=== PATIENT | female | born 1980 | race Caucasian/White ===

== ENCOUNTER 2020-01-18 12:01 | Emergency (ER) | payer OTHER, SELFPAY ==
[2020-01-18 12:05] VITALS: BP 148/117; PULSE 100; RESP 18; TEMP 36.6; O2SAT 98
--- NOTE | 2020-01-18 12:28 | ED.GENADUL_ITS ---
Discharge Plan Disposition Patient Disposition: HOME Condition: Improving Discharge Details Chief Complaint: Epistaxis Clinical Impression: Epistaxis Primary Care Provider: Neville Barone ED Provider: Allison Camarillo Home Meds and New Rx's Prescriptions: New oxymetazoline 0.05 % mist 2 spray JEWEL Q12H PRN (Reason: nasal congestion) 3 Days Qty: 15 RF: 0 Continued cholecalciferol (vitamin D3) 2,000 unit capsule 2,000 unit PO DAILY RF: 0 flaxseed oil 1,000 mg capsule 1,000 mg PO DAILY RF: 0 fexofenadine [Milli] 180 MG tablet 180 mg PO DAILY RF: 0 iron 55 MG tablet extended release 55 mg PO RF: 0 ascorbic acid (vitamin C) [Vitamin C] 500 MG tablet,chewable 500 mg PO DAILY RF: 0 cinnamon bark 500 MG capsule 500 mg PO DAILY RF: 0 zinc gluconate 30 MG tablet 30 mg PO 2-3 x wkly RF: 0 magnesium oxide 250 MG tablet 250 mg PO RF: 0 turmeric root extract 1 EACH capsule 1 ea PO RF: 0 albuterol sulfate [Ventolin HFA] 90 mcg/actuation HFA aerosol inhaler 2 puff IH Q4H PRN (Reason: shortness of breath or wheezing) Qty: 18 RF: 11 albuterol sulfate 2.5 mg/0.5 mL solution for nebulization 5 mg IH Q6H PRN (Reason: shortness of breath or wheezing) Qty: 30 RF: 0 ipratropium-albuterol 0.5 mg-3 mg(2.5 mg base)/3 mL solution for nebulization 3 ml IH QID PRN (Reason: wheezing) Qty: 90 RF: 0 Discharge Instructions Instructions: Nosebleed (ED) Additional Instructions: Use spray as directed. Apply pressure for 15 minutes if recurrence of bleeding if bleeding does not stop after 15 minutes please return to the ED. Try not to pick your nose or blow your nose if possible. Keep mucous membranes moist with lubricant or Vaseline. Follow up with primary care provider in 3-5 days. Return to ED sooner if any worsening or concerns. Increase oral fluids. Referrals: Neville Barone, [Primary Care Provider] - Medical Decision Making 39-year-old obese female presents with epistaxis to the left nare. Patient states that for approximately 1 hour she has had a nosebleed. She states that she is had recent bloody noses over the last couple days x3. She states that usually the bleeding will stop within 15 minutes. She denies being on blood thinners, denies headache. She is slightly hypertensive upon arrival at 160/98. After holding pressure for approximately 30 minutes upon initial presentation bleeding has slowed. Nasal clamp placed. Orders for transischemic acid topically ordered. 1240: Cottonball soaked with TXA 500 mg placed to the left nare and nasal clamp applied. Will reevaluate in 10 minutes for any continued bleeding. 1305: Cotton packing removed, no active bleeding noted, will observe for 10 minutes with plan to discharge. BP down to 148/85 1319: No further bleeding at this time, plan is to discharge home, discussed home care and return instructions. HPI General Mode of arrival: ambulatory . Date/Time Provider Initiated Documentation: 01/18/20 12:18 . Limitations to Documentation: no limitations . Information obtained by: patient . HPI Narrative: 39-year-old female presents with epistaxis to the left nare. Patient states that for approximately 1 hour she has had a nosebleed. She states that she is had recent bloody noses over the last couple days x3. She states that usually the bleeding will stop within 15 minutes. She denies being on blood thinners, denies headache. She is slightly hypertensive upon arrival at 160/98. After holding pressure for approximately 30 minutes upon initial presentation bleeding has slowed. Nasal clamp placed. Orders for transischemic acid topically ordered. Related Data Home Medications Medication Instructions Recorded Confirmed ascorbic acid (vitamin C) [Vitamin 500 mg PO DAILY tab.chew 03/10/13 01/18/20 C] cinnamon bark 500 mg PO DAILY 03/10/13 01/18/20 fexofenadine [Milli] 180 mg PO DAILY tab-cap 03/10/13 01/18/20 iron 55 mg PO 03/10/13 05/02/19 zinc gluconate 30 mg PO 2-3 x wkly 07/18/16 01/18/20 magnesium oxide 250 mg PO 05/06/18 05/02/19 turmeric root extract 1 ea PO 05/06/18 05/02/19 cholecalciferol (vitamin D3) 50 2,000 unit PO DAILY 12/08/18 01/18/20 mcg (2,000 unit) capsule flaxseed oil 1,000 mg capsule 1,000 mg PO DAILY 05/02/19 01/18/20 albuterol sulfate 90 mcg/actuation 2 puff IH Q4H PRN #18 gm 01/16/20 01/18/20 aerosol inhaler albuterol sulfate 2.5 mg/0.5 mL 5 mg IH Q6H PRN #30 each 01/17/20 01/18/20 solution for nebulization ipratropium 0.5 mg-albuterol 3 mg 3 ml IH QID PRN #90 ml 01/18/20 01/18/20 (2.5 mg base)/3 mL nebulization soln oxymetazoline 2 spray JEWEL Q12H PRN 3 Days #15 ml 01/18/20 Previous Rx's Medication Instructions Recorded albuterol sulfate 90 mcg/actuation 2 puff IH Q4H PRN #18 gm 01/16/20 aerosol inhaler albuterol sulfate 2.5 mg/0.5 mL 5 mg IH Q6H PRN #30 each 01/17/20 solution for nebulization ipratropium 0.5 mg-albuterol 3 mg 3 ml IH QID PRN #90 ml 01/18/20 (2.5 mg base)/3 mL nebulization soln oxymetazoline 2 spray JEWEL Q12H PRN 3 Days #15 ml 01/18/20 Allergies Allergy/AdvReac Type Severity Reaction Status Date / Time prednisone Allergy Mild Verified 01/18/20 12:17 General Stated Complaint: Epistaxis OH: 4 Review of Systems Narrative: Constitutional: Negative for weight loss, alert and oriented, well groomed, obese body habitus, appears comfortable. HEENT: Denies trauma, headaches, blurry vision, sore throat, trouble swallowing. Positive left nare epistaxis. Chest: Denies chest pain, palpitations, irregular rhythm, hypertension. Respiratory: Denies Shortness of breath, cough, hemoptysis. GI: Denies abdominal pain, nausea, vomiting, diarrhea, constipation. : Denies dysuria, hematuria, flank pain, rectal bleeding. Neuro: Denies dizziness, blurry vision, weakness, syncope, headache or facial numbness. Hematologic: Denies easy bruising, intolerance to heat or cold, hair loss. PFSH Medical History Morbid obesity (Acute) Family History Mother Essential hypertension Hyperlipidemia Thyroid disorder Father Myocardial infarction Grandfather Diabetes Grandmother Diabetes Social History Smoking/Tobacco Use Status: Never Alcohol Intake: current Alcohol Intake frequency: holidays/special occasions only Alcohol type: hard liquor Substance use type: does not use current occupation: [employer] Do you feel safe at home: Yes Do you feel safe in your relationship?: Yes History History 0 Para Hx # Term Pregnancies Multiple births Hx # Pregnancies Ectopic pregnancies AB induced Hx Number of Living Children AB spontaneous Exam Narrative Exam Narrative: Constitutional: Allert and oriented x3. Appears stated age. Obese body habitus. Head: Normocephalic, no trauma. Eyes: Pupils PERRLA, Red reflex noted, EOM's intact. Eyelids symmetrical withour lesions, discharge, or swelling. ENT: Bilateral TM's WNL, External ear normal to inspection, no mastoid TTP, swelling, or erythema, left nasal epistaxis. No nasal discharge. Normal dentiti on, Posterior pharynx WNL, no exudate. Chest: RRR, Normal S1, S2, distal pulses intact. Resp: Lungs clear to auscultation bilaterally, no wheezes, rales, or rhonchi. Musculoskeletal: Normal gait, 5/5 strength to all four extremities. Skin: No suspicious rashes or lesions. Capillary refill less than 2 sec. Neurologic: Cranial nerves II-XII intact. Alert and oriented x 3. DTR's intact. Hematologic/Lymphatic: No ecchymosis, no lymphadenopathy. Course Vital Signs Vital signs: Vital Signs Temperature 36.6 C 01/18/20 12:05 Pulse 100 H 01/18/20 12:05 Respiratory Rate 18 01/18/20 12:05 Blood Pressure 148/117 H 01/18/20 12:05 Pulse Oximetry 98 01/18/20 12:05 Temperature 36.6 C 01/18/20 12:05 Temperature Source Skin 01/18/20 12:05 Pulse 100 H 01/18/20 12:05 Respiratory Rate 18 01/18/20 12:05 Respiratory Effort Non-Labored 01/18/20 12:12 Blood Pressure 148/117 H 01/18/20 12:05 Blood Pressure Position Sitting 01/18/20 12:05 Pulse Oximetry 98 01/18/20 12:05 Oxygen Delivery Method Room Air 01/18/20 12:05 Oxygen Flow Rate 0 01/18/20 12:05 Pain Level 0 01/18/20 12:05
[2020-01-18] MEDS: Tranexamic Acid 1,000 MG/10 ML VIAL 500 MG NS (12:35)
[2020-01-18 13:25] VITALS: BP 108/75; PULSE 97; TEMP 36.5; O2SAT 97
== END 2020-01-18 13:25 | disposition home or self-care (01) ==
PROVIDERS: Emergency Provider Registered Nurse Emergency; PCP Emergency Medicine
DX: R04.0 Epistaxis (principal); I10 Essential (primary) hypertension
CPT/HCPCS: 30901

== ENCOUNTER 2020-04-18 11:38 | Emergency (ER) | payer OTHER, SELFPAY ==
[2020-04-18 11:45] VITALS: BP 166/94; PULSE 98; RESP 18; TEMP 36.6; O2SAT 99
--- NOTE | 2020-04-18 11:45 | DI.RAD_ITS ---
EXAM: XR KNEE RT 3V AP,LAT,NINA CLINICAL HISTORY: Pain, swelling. TECHNIQUE: 2D digital imaging was performed. COMPARISON: No exams were available for comparison FINDINGS: BONES: No acute fracture is present. No bony destructive lesion is seen. There is a triangular densit y present in the intercondylar notch. It is of uncertain acuity. It may be chronic and represent lo ose body or old fracture. JOINTS: The knee is normally aligned. No joint effusion is seen. SOFT TISSUE: Normal. IMPRESSION: No definite acute fracture or dislocation. No joint effusion. DATA REPOSITORY: RADIATION DOSE DELIVERED:
--- NOTE | 2020-04-18 11:45 | DI.RAD_ITS ---
EXAM: XR ANKLE RT COMPLETE CLINICAL HISTORY: Pain, swelling. TECHNIQUE: 2D digital imaging was performed. COMPARISON: No exams were available for comparison FINDINGS: BONES: No acute fracture or dislocation is seen. Well corticated osseous densities are seen within t he talonavicular joint on the lateral view. There is a large enthesophyte at the Achilles insertion site on the calcaneus. JOINTS: The ankle mortise is normally aligned. SOFT TISSUE: Soft tissue swelling about the ankle. IMPRESSION: No acute fracture or dislocation. Soft tissue swelling of the ankle. DATA REPOSITORY: RADIATION DOSE DELIVERED:
--- NOTE | 2020-04-18 11:45 | DI.US_ITS ---
EXAM: US LOWER EXTREMITY VENOUS RT CLINICAL HISTORY: R/O DVT, swelling TECHNIQUE: Right lower extremity venous ultrasound performed using grayscale, color-flow, and spectr al Doppler analysis. COMPARISON: No exams were available for comparison FINDINGS: The right common femoral, femoral and popliteal veins demonstrate normal compressibility, augmentatio n, and color Doppler. The posterior tibial veins are patent. The saphenofemoral junction is unremark able. There is no evidence of a Bonilla cyst. There is a 3.9 x 3.9 cm avascular fluid collection in t he subcutaneous tissues laterally corresponding to the area of bruising. This may represent a small hematoma. IMPRESSION: No DVT. 3.9 cm fluid collection in the subcutaneous tissues corresponding to the area of bruising. This may represent a hematoma. The findings were communicated with the emergency department on the date of the examination. DATA REPOSITORY:
--- NOTE | 2020-04-18 12:04 | ED.GENADUL_ITS ---
Discharge Plan Disposition Patient Disposition: HOME Condition: Stable Discharge Details Chief Complaint: Orthopedic Clinical Impression: Injury of ligament of right knee, Hematoma of right lower extremity Primary Care Provider: Neville Barone ED Provider: Allison Camarillo Home Meds and New Rx's Prescriptions: No Action cholecalciferol (vitamin D3) 2,000 unit capsule 2,000 unit PO DAILY RF: 0 flaxseed oil 1,000 mg capsule 1,000 mg PO BID RF: 0 fexofenadine [Milli] 180 MG tablet 180 mg PO DAILY RF: 0 iron 55 MG tablet extended release 55 mg PO DAILY RF: 0 ascorbic acid (vitamin C) [Vitamin C] 500 MG tablet,chewable 500 mg PO DAILY RF: 0 cinnamon bark 500 MG capsule 500 mg PO DAILY RF: 0 zinc gluconate 30 MG tablet 30 mg PO 2-3 x wkly RF: 0 magnesium oxide 250 MG tablet 250 mg PO DAILY RF: 0 turmeric root extract 1 EACH capsule 1 ea PO DAILY RF: 0 albuterol sulfate [Ventolin HFA] 90 mcg/actuation HFA aerosol inhaler 2 puff IH Q4H PRN (Reason: shortness of breath or wheezing) Qty: 18 RF: 11 albuterol sulfate 2.5 mg/0.5 mL solution for nebulization 5 mg IH Q6H PRN (Reason: shortness of breath or wheezing) Qty: 30 RF: 0 ipratropium-albuterol 0.5 mg-3 mg(2.5 mg base)/3 mL solution for nebulization 3 ml IH QID PRN (Reason: wheezing) Qty: 90 RF: 0 Discharge Instructions Instructions: ACL Injury (ED), Knee Immobilizer (ED), Hematoma (ED) Additional Instructions: Please call and make an appointment with [facility] orthopedics. Phone number there is for an appointment in the next 1 to 2 weeks. This type of injury could require surgery and the surgery would need to be done at [facility]. If you [place] have an orthopedic follow- up appointment here you may keep it however you do need to schedule an MRI and an appointment at [facility]. Follow up with primary care provider in 3-5 days. Return to ED sooner if any wo rsening or concerns. Increase oral fluids. Please take Tylenol or Ibuprofen with food every 4-6 hours as needed for pain and swelling. Rest, ice, compression, elevation as much as possible. Return if you have any problems with circulation or blood flow to your foot any worsening numbness. Referrals: [facility] [Outside] (Call to make an appointment with Ortho for possible ligament injury, ACL or PCL tear.) Neville Barone DO [Primary Care Provider] - Discharge Data Discharge Date/Time-TO BE ENTERED AT DEPARTURE: 04/18/20 14:35 Medical Decision Making 1220: At this time x-ray of knee and ankle are ordered, right lower extremity Doppler ultrasound ordered to rule out DVT. This time differential diagnosis includes fracture, ligament injury, DVT, compartment syndrome. Compartment syndrome is unlikely at this time patient is not complaining of severe pain. Patient states that she did take a gram of Tylenol and 800 mg ibuprofen at 830 this morning which helped with pain. Patient does have Ortho appointment in 2 weeks. 1308: Imaging results obtained, there is a small hematoma laterally on the ultrasound 3.9 cm. X-rays results noted below. Possible ligamentous injury versus fracture. Placed patient in a knee immobilizer and consult with Ortho. EXAM: XR KNEE RT 3V AP,LAT,NINA CLINICAL HISTORY: Pain, swelling. TECHNIQUE: 2D digital imaging was performed. COMPARISON: No exams were available for comparison FINDINGS: BONES: No acute fracture is present. No bony destructive lesion is seen. There is a triangular density present in the intercondylar notch. It is of uncertain acuity. It may be chronic and represent loose body or old fracture. JOINTS: The knee is normally aligned. No joint effusion is seen. SOFT TISSUE: Normal. IMPRESSION: No definite acute fracture or dislocation. No joint effusion. Ultrasound lower extremity venous right FINDINGS: The right common femoral, femoral and popliteal veins demonstrate normal compressibility, augmentation, and color Doppler. The posterior tibial veins are patent. The saphenofemoral junction is unremarkable. There is no evidence of a Bonilla cyst. There is a 3.9 x 3.9 cm avascular fluid collection in the subcutaneous tissues laterally corresponding to the area of bruising. This may represent a small hematoma. IMPRESSION: No DVT. 3.9 cm fluid collection in the subcutaneous tissues corresponding to the area of bruising. This may represent a hematoma. The findings were communicated with the emergency department on the date of the examination. 1418: Spoke with Dr. Bartolo metz with orthopedics on-call he reviewed diagnostic imaging and recommends follow-up with orthopedics at [facility] due to weight limit of MRI machine and surgical capabilities, immobilizer, or Erik wrap and follow-up. Will give strict return instructions if foot gets worse with cold blue numbness or tingling. Patient declined crutches at this time states that she has an Erik wrap at home. Patient given at [facility] phone number and instructions to follow-up. She does have an upcoming appointment with our orthopedics in 2 weeks and instructed to keep that appointment just in case she has any problems getting in with [facility]. HPI General Mode of arrival: ambulatory (cane) . Date/Time Provider Initiated Documentation: 04/18/20 11:39 . Limitations to Documentation: physical limitation . Information obtained by: patient . HPI Narrative: 39-year-old morbidly obese female presents to the ED with chief complaint of right knee, ankle and leg swelling after a twisting type injury on Thursday night while at work. Patient states that she twisted fell landing on her right side on Thursday no other injuries noted. She has been walking with a cane ever since and did see her PCP on April 16 via tele-visit. There is a pending ultrasound order for soft tissue swelling per the tele-visit note. On initial exam, there is moderate ecchymosis noted to the lateral aspect of her right knee and swelling. Patient is complaining of numbness and tingling to her right foot. Cap refill is approximately 3 to 4 seconds. There is 2-3+ pitting edema noted to the dorsum of her right foot. There is no calf tenderness noted to palpation, negative Homans sign. Related Data Home Medications Medication Instructions Recorded Confirmed ascorbic acid (vitamin C) [Vitamin 500 mg PO DAILY tab.chew 03/10/13 04/18/20 C] cinnamon bark 500 mg PO DAILY 03/10/13 04/18/20 fexofenadine [Milli] 180 mg PO DAILY tab-cap 03/10/13 04/18/20 iron 55 mg PO DAILY 03/10/13 04/18/20 zinc gluconate 30 mg PO 2-3 x wkly 07/18/16 04/18/20 magnesium oxide 250 mg PO DAILY 05/06/18 04/18/20 turmeric root extract 1 ea PO DAILY 05/06/18 04/16/20 cholecalciferol (vitamin D3) 50 2,000 unit PO DAILY 12/08/18 04/18/20 mcg (2,000 unit) capsule flaxseed oil 1,000 mg capsule 1,000 mg PO BID 05/02/19 04/18/20 albuterol sulfate 90 mcg/actuation 2 puff IH Q4H PRN #18 gm 01/16/20 04/18/20 aerosol inhaler albuterol sulfate 2.5 mg/0.5 mL 5 mg IH Q6H PRN #30 each 01/17/20 04/18/20 solution for nebulization ipratropium 0.5 mg-albuterol 3 mg 3 ml IH QID PRN #90 ml 01/18/20 04/18/20 (2.5 mg base)/3 mL nebulization soln Previous Rx's Medication Instructions Recorded albuterol sulfate 90 mcg/actuation 2 puff IH Q4H PRN #18 gm 01/16/20 aerosol inhaler albuterol sulfate 2.5 mg/0.5 mL 5 mg IH Q6H PRN #30 each 01/17/20 solution for nebulization ipratropium 0.5 mg-albuterol 3 mg 3 ml IH QID PRN #90 ml 01/18/20 (2.5 mg base)/3 mL nebulization soln Allergies Allergy/AdvReac Type Severity Reaction Status Date / Time prednisone Allergy Mild Verified 04/18/20 11:53 General Stated Complaint: Orthopedic OH: 3 Review of Systems Narrative: Constitutional: Negative for weight loss, alert and oriented, well groomed,appears comfortable. HEENT: Denies trauma, headaches, blurry vision, nasal discharge, sore throat, trouble swallowing. Chest: Denies chest pain, palpitations, irregular rhythm, hypertension. Respiratory: Denies Shortness of breath, cough, hemoptysis. GI: Denies abdominal pain, nausea, vomiting, diarrhea, constipation. : Denies dysuria, hematuria, flank pain, rectal bleeding. Extremities: Right upper and lower extremity ecchymosis right knee and ankle pain. Neuro: Denies dizziness, blurry vision, weakness, syncope, headache or facial numbness. Hematologic: Denies easy bruising, intolerance to heat or cold, hair loss. [facility] Medical History (Updated 04/18/20 @ 14:34 by Allison Camarillo) Morbid obesity (Acute) Pain and swelling of right knee (Acute) Social History Smoking/Tobacco Use Status: Never Alcohol Intake: current Alcohol Intake frequency: holidays/special occasions only Alcohol type: hard liquor Substance use type: does not use current occupation: [employer] Do you feel safe at home: Yes Do you feel safe in your relationship?: Yes History History 0 Para Hx # Term Pregnancies Multiple births Hx # Pregnancies Ectopic pregnancies AB induced Hx Number of Living Children AB spontaneous Exam Narrative Exam Narrative: Constitutional: Alert and oriented x3. Appears stated age. Morbidly obese body habitus. Head: Normocephalic, no trauma. Eyes: Pupils PERRLA, Red reflex noted, EOM's intact. Eyelids symmetrical without lesions, discharge, or swelling. ENT: Bilateral TM's WNL, External ear normal to inspection, no mastoid TTP, swelling, or erythema, Nasal turbinates WNL, no nasal discharge. Normal dentition, Posterior pharynx WNL, no exudate. Chest: RRR, Normal S1, S2, distal pulses intact. Resp: Lungs clear to auscultation bilaterally, no wheezes, rales, or rhonchi. Musculoskeletal: Large ecchymosis to right lower extremity, there is ecchymosis from upper posterior thigh wound to the lateral aspect of her right knee down into her right calf in varying stages of healing. Cap refill 3 to 4 seconds, skin is swollen, is blanching. Skin: Contusion ecchymosis noted see above musculoskeletal exam, small brown lesion noted to her anterior calf, Neurologic: Cranial nerves II-XII intact. Alert and oriented x 3. DTR's intact. Hematologic/Lymphatic: Large ecchymosis noted right lower extremity no lymphadenopathy. Course Vital Signs Vital signs: Vital Signs Temperature 36.6 C 04/18/20 11:45 Pulse 98 H 04/18/20 11:45 Respiratory Rate 18 04/18/20 11:45 Blood Pressure 166/94 H 04/18/20 11:45 Pulse Oximetry 99 04/18/20 11:45 Temperature 36.6 C 04/18/20 11:45 Temperature Source Temporal Artery Scan 04/18/20 11:45 Pulse 98 H 04/18/20 11:45 Respiratory Rate 18 04/18/20 11:45 Respiratory Effort 04/18/20 11:51 Blood Pressure 166/94 H 04/18/20 11:45 Blood Pressure Position Sitting 04/18/20 11:45 Pulse Oximetry 99 04/18/20 11:45 Oxygen Delivery Method Room Air 04/18/20 11:45 Oxygen Flow Rate 0 04/18/20 11:45 Pain Level 0 04/18/20 11:59
[2020-04-18 14:39] VITALS: BP 154/77; PULSE 107; RESP 22; TEMP 36.6; O2SAT 99
--- NOTE | 2020-04-18 15:50 | NUR.NOTE ---
Nursing Note: Patient called asking about her appt at [facility] Ortho and MRI. I clarified what Allison Camarillo NP wanted. I called patient back,told her that someone would call her for the appt at [facility] and that they would be the ones determining the MRI. She understands and will wait for someone to call her. Natali Pearson.
--- NOTE | 2020-04-19 09:48 | CMPROGNOTE_ITS ---
- If Service Date Differs Date of service: 04/18/20 Time of Service: 09:48 Care Management Progress Note At the request of ED provider, CM coordinates referral to [facility] orthopedics. Oriana is seen in the ED today for knee pain subsequent to a fall.
== END 2020-04-18 14:35 | disposition home or self-care (01) ==
PROVIDERS: Emergency Provider Registered Nurse Emergency; PCP Emergency Medicine
DX: S83.511A Sprain of anterior cruciate ligament of right knee, initial encounter (principal); S70.11XA Contusion of right thigh, initial encounter; S80.11XA Contusion of right lower leg, initial encounter; W19.XXXA Unspecified fall, initial encounter; X50.9XXA Other and unspecified overexertion or strenuous movements or postures, initial encounter; Y99.0 Civilian activity done for income or pay
CPT/HCPCS: 29505; 73562; 99284; 73610; 93971; L1810

== ENCOUNTER 2021-01-11 16:58 | Outpatient (REF) | payer BC, SELFPAY ==
--- NOTE | 2021-01-11 13:20 | PAPFT_PTH ---
PATIENT: Oriana Lawler LOC: [facility] U#:[id number] AGE/SX: 40/F ROOM: RE01/11/[address]: PATRICIA Montaño : 1980 BED: DIS: 01/11/2021 SPEC #: [id number] RECD: 01/11/21 17:30 STATUS: MADDIE REQ #: [id number] SOFIA: 01/11/21 13:[address]: Beth Card DEPT: [facility] Cytology RECD BY: Monica Lora ENTERED: 01/11/21 17:31 SP TYPE: PAPFT OTHR DR: Neville Barone, Tissues: 1 - CX/ENDOCX FOR PAP SMEARS Procedures: PAP THIN PREP/UVM Screening HPV DNA PROBE Comments: [id number]
== END 2021-01-11 16:59 | disposition home or self-care (01) ==
LOC: NCHCN 16:58
PROVIDERS: PCP Emergency Medicine; Visit Provider Nurse Practitioner Family
DX: Z12.4 Encounter for screening for malignant neoplasm of cervix (principal); Z11.51 Encounter for screening for human papillomavirus (HPV)
CPT/HCPCS: 88142; 87624

== ENCOUNTER 2021-01-18 04:00 | Outpatient (CLI) | payer BC, SELFPAY ==
--- NOTE | 2021-01-18 07:45 | DI.MAMMO_ITS ---
EXAM: MAMMO SCREENING CLINICAL HISTORY: screening,Z12.39 TECHNIQUE: Mammograms were interpreted according to the usual protocol including computer analysis w [employer] system, tomosynthesis and C-view imaging. COMPARISON: FINDINGS: The breasts are of moderate density with fairly symmetrical distribution fibroglandular tissue. No d ominant mass or clumped microcalcification is identified in either breast. Today's examination is a baseline examination. IMPRESSION: No specific evidence of malignancy at this time. Routine screening examinations are suggested at yea rly intervals in this age group according to the ACR guidelines. BI-RADS Category 1 - Negative Breast Density - Category B - Scattered areas of fibroglandular density
== END 2021-01-18 04:20 ==
PROVIDERS: PCP Emergency Medicine; Visit Provider Nurse Practitioner Family
DX: Z12.31 Encounter for screening mammogram for malignant neoplasm of breast (principal)
CPT/HCPCS: 77063; 77067

== ENCOUNTER 2021-08-21 03:19 | Outpatient (CLI) | payer BC, SELFPAY ==
[2021-08-21 15:37] LABS: HGB 12.6 g/dL (11.2-15.7); MCH 30.1 pg (27.0-33.0); MCHC 33.2 % (32.0-36.0); MCV 90.7 fL (80-95); MPV 9.6 fL (8.0-11.0); Platelet Count 280 10^3/uL (130-400); RBC 4.19 10^6/uL (3.93-5.22); RDW 12.9 % (11.7-14.6); WBC 8.22 10^3/uL (4.4-10.8)
[2021-08-21 16:38] LABS: ALT 23 U/L (14-59); AST 15 U/L (15-37); Albumin 3.9 g/dL (3.4-5.0); Alkaline Phosphatase 85 U/L (46-116); Anion Gap 9.3 mmol/L (3-11); BUN 18 mg/dL (7-18); Bilirubin, Total 0.4 mg/dL (0.2-1.0); CO2 29.7 mmol/L (21.0-32.0); CREATININE 0.8 mg/dL (0.55-1.02); Calcium 9.2 mg/dL (8.5-10.1); Chloride 96 mmol/L (98-107); Glucose 91 mg/dL (74-106); NT-proBNP 130 pg/mL (<300); Potassium 3.3 mmol/L (3.5-5.1); Sodium 135 mmol/L (136-145); TSH (W/Ref FT4) 2.96 uIU/mL (0.36-3.74)
== END 2021-08-21 03:20 | disposition home or self-care (01) ==
PROVIDERS: PCP Emergency Medicine; Visit Provider Family Medicine
DX: I10 Essential (primary) hypertension; R60.0 Localized edema; M25.561 Pain in right knee
CPT/HCPCS: 36415; 80053; 85027; 83880; 84443

== ENCOUNTER 2021-10-01 02:32 | Outpatient (CLI) | payer BC, SELFPAY ==
[2021-10-01 08:10] VITALS: BP 122/76; PULSE 83; RESP 18; TEMP 36.5; O2SAT 99
[2021-10-01] MEDS: Normal Saline 500 ML 30 ML IV (08:30)
[2021-10-01 08:50] VITALS: BP 133/81; PULSE 81; RESP 18; TEMP 36.6; O2SAT 96
[2021-10-01 09:10] VITALS: BP 131/80; PULSE 80; RESP 18; TEMP 36.9; O2SAT 98
[2021-10-01 09:40] VITALS: BP 139/90; PULSE 80; RESP 18; TEMP 36.5; O2SAT 99
[2021-10-01] MEDS: Normal Saline Flush 10 ML SYR IVP (09:46)
[2021-10-01 10:06] VITALS: BP 131/80; PULSE 79; RESP 18; TEMP 36.7; O2SAT 98
== END 2021-10-01 02:33 | disposition home or self-care (01) ==
LOC: INF 02:33
PROVIDERS: PCP Family Medicine; Visit Provider Family Medicine
DX: U07.1 COVID-19 (principal)
CPT/HCPCS: 96365

== ENCOUNTER 2021-10-25 03:51 | Outpatient (CLI) | payer BC, SELFPAY ==
[2021-10-25 09:14] LABS: HCT 36.7 % (36.0-46.0); MCH 30.8 pg (27.0-33.0); MCHC 32.7 % (32.0-36.0); MCV 94.1 fL (80-95); MPV 9.5 fL (8.0-11.0); Platelet Count 282 10^3/uL (130-400); RDW 13.2 % (11.7-14.6); RDW-SD 45.3 fL; WBC 5.66 10^3/uL (4.4-10.8)
[2021-10-25 09:40] LABS: Hemoglobin A1C 5.6 % (<5.7)
[2021-10-25 10:33] LABS: ALT 24 U/L (14-59); AST 19 U/L (15-37); Albumin 3.6 g/dL (3.4-5.0); Alkaline Phosphatase 72 U/L (46-116); Anion Gap 8.6 mmol/L (3-11); BUN 17 mg/dL (7-18); Bilirubin, Total 0.4 mg/dL (0.2-1.0); CO2 28.4 mmol/L (21.0-32.0); CREATININE 0.6 mg/dL (0.55-1.02); Calcium 8.9 mg/dL (8.5-10.1); Chloride 101 mmol/L (98-107); Glucose 107 mg/dL (74-106); NT-proBNP 101 pg/mL (<300); Potassium 4.2 mmol/L (3.5-5.1); Sodium 138 mmol/L (136-145); TSH (W/Ref FT4) 1.87 uIU/mL (0.36-3.74); Total Protein 7.2 g/dL (6.4-8.2)
== END 2021-10-25 03:52 | disposition home or self-care (01) ==
LOC: LBO 03:52
PROVIDERS: PCP Family Medicine; Visit Provider Family Medicine
DX: R60.0 Localized edema; R73.9 Hyperglycemia, unspecified; I10 Essential (primary) hypertension
CPT/HCPCS: 36415; 80053; 85027; 83036; 83880; 84443

== ENCOUNTER 2021-10-31 01:39 | Outpatient (CLI) | payer BC, SELFPAY ==
--- NOTE | 2021-10-31 13:44 | DI.US_ITS ---
APPROVED REPORT EXAM: Comprehensive 2D, Doppler, and color-flow Echocardiogram Patient Location: [facility] Teacher: Michelle Maurer RDCS ([place]) Indications: New onset systolic murmur, leg edema Other Information Study Quality: Fair. Technically limited study due to body habitus. Conclusion Left Ventricle : The left ventricle is normal size. The left ventricular ejection fraction is within the normal range. There is normal left ventricular wall thickness. There is normal LV segmental wall motion. The left ventricular diastolic function is normal. LVEF is 58%. Right Ventricle : Right ventricle is grossly normal in size. Right ventricular systolic function is g rossly normal. Valves: There are no hemodynamically significant valvular lesions. Great Vessels : The aortic root is normal in size. The ascending aorta is normal in size. Aortic arch is not well visualized. IVC is normal in size and collapses >50% with inspiration. Please see remainder of study for further details. Wall motion Left Ventricle The left ventricle is normal size. The left ventricular ejection fraction is within the normal range. There is normal left ventricular wall thickness. There is normal LV segmental wall motion. The left ventricular diastolic function is normal. There is no ventricular septal defect visualized. LVEF is 5 8%. Right Ventricle Right ventricle is grossly normal in size. Right ventricular systolic function is grossly normal. Atria The left atrium size is normal. The right atrium size is normal. The interatrial septum is intact wit h no evidence for an atrial septal defect. Aortic Valve The aortic valve is normal in structure. Aortic valve is probably trileaflet. There is no aortic valv ular stenosis. No aortic regurgitation is present. Mitral Valve The mitral valve is normal in structure. No evidence of mitral valve stenosis. Trace mitral regurgita tion. Tricuspid Valve The tricuspid valve is normal in structure. There is no tricuspid valve stenosis. Trace tricuspid reg urgitation. Unable to assess PA pressure. Pulmonic Valve The pulmonary valve is normal in structure. There is no pulmonic valvular stenosis. There is no pulmo sage valvular regurgitation. Great Vessels The aortic root is normal in size. The ascending aorta is normal in size. Aortic arch is not well vis ualized. IVC is normal in size and collapses >50% with inspiration. Pericardium There is no pericardial effusion. 2D Dimensions IVSD d PLAX 0.90 cm F: 0.6-1.0 LV Vol A2C d MOD 139.2 mL LVPW d PLAX 0.93 cm F: 0.6 - 1.0 LV Vol A4C d MOD 123.7 mL LVID d PLAX 4.87 cm F: 3.8 - 5.2 LA vol/ BSA A2C s A-L 20.9 mL/m2 LVDs 3.30 cm F: 2.2 - 3.5 LA vol/ BSA A4C s A-L 14.4 mL/m2 Ao Root d 2.42 cm F: 2.7 - 3.3 LA Vol/ BSA Biplane s A-L 17.9 mL/m2 Ao Asc Diam d 3.00 cm F: 2.3 - 3.1 LA Area A4C s MOD 14.52 cm2 LV EF Teichholz 59.8 % LA Area A2C s MOD 18.06 cm2 LVEF (Pizarro's) 59.01 % F: 54 - 74 LV EF A4C MOD 60.6 % LV Volume 95.20 mL F: 46 - 106 LV EF A2C MOD 57.8 % LV Volume Index 39.50 mL/m2 F: 29 - 61 LV EF Biplane MOD 59.0 % LV Vol Biplane MOD 134.7 mL SV 79.47 mL FS 31.85 % SV Index 32.88 mL/m2 M-Mode TAPSE 2.01 cm (M/F) >1.7 LV Diastology MV E' medial 0.131 (>0.07 m/s) E/A Ratio 1.2 LV E/e MED 10.10 (<14) MV E Vmax 1.32 (0.4-1.3 m/s) MV E' lateral 0.142 (>0.1 m/s) MV A Vmax 1.10 (0.4-1.3 m/s) LV E/e LAT 9.30 (<14) MV E/A Ratio 1.16 MV E/E' medial 10.13 MV E/E' lateral 9.34 Aortic Valve LVOT Area 2.87 cm2 AoV Area Vmax 2.30 cm2 LVOT Vmax 1.20 m/s AoV Area/ BSA (Vmax) 0.95 cm2/m2 LVOT Mean [place]. 0.75 m/s LEANDRO Mean [place]. 1.97 cm2 LVOT Peak Grad 5.7 mmHg LEANDRO Mean [place]. Index 0.81 cm2/m2 LVOT Mean Grad 2.7 mmHg LVOT VTI 0.259 m LVOT Diam s 1.90 cm AoV Vmax 1.50 m/s Velocity Ratio 0.80 AoV Mean [place]. 1.09 m/s AoV Peak Grad 9.0 mmHg LVOT SV 74.38 mL AoV Mean Grad 5.3 mmHg AoV VTI 0.309 m AoV Area VTI 2.41 cm2 AoV Area/ BSA (VTI) 1.00 cm/m2 Mitral Valve MV DT 197 (160-240 msec) MV PHT 57 msec MV Area PHT 3.86 cm2 MV VTI 0.268 m MV Area VTI 2.77 (4.0-6.0 cm2) Pulmonary Valve PV Vmax 1.26 (0.5-1.5 m/s) RVOT Peak Gr. 2.25 mmHg PV Peak Grad 6.4 mmHg RVOT Mean Gr. 1.05 mmHg PV Mean Grad 3.4 mmHg RVOT VTI 0.140 m PV VTI 0.267 m RVOT Vmax 0.75 m/s
== END 2021-10-31 01:59 ==
PROVIDERS: PCP Family Medicine; Visit Provider Family Medicine
DX: R01.1 Cardiac murmur, unspecified (principal); R60.0 Localized edema; R93.9 Diagnostic imaging inconclusive due to excess body fat of patient
CPT/HCPCS: 93306

== ENCOUNTER 2023-10-20 02:40 | Outpatient (CLI) | payer BC, SELFPAY ==
[2023-10-20 14:28] LABS: Anion Gap 8.4 mmol/L (3-11); BUN 18 mg/dL (7-18); CO2 29.6 mmol/L (21.0-32.0); CREATININE 0.9 mg/dL (0.55-1.02); Calcium 9.7 mg/dL (8.5-10.1); Calculated LDL 71 mg/dL (<100); Chloride 100 mmol/L (98-107); Cholesterol 199 mg/dL (<200); Estimated GFR 81.86 (mL/min/1.73m2); Glucose 106 mg/dL (74-106); HDL Cholesterol 63 mg/dL (40-60); Potassium 3.6 mmol/L (3.5-5.1); Sodium 138 mmol/L (136-145); Triglyceride 327 mg/dL (<150)
== END 2023-10-20 02:41 | disposition home or self-care (01) ==
LOC: LBO 02:40
PROVIDERS: PCP Nurse Practitioner Family; Visit Provider Nurse Practitioner Family
DX: J45.909 Unspecified asthma, uncomplicated (principal); R60.0 Localized edema; Z00.00 Encounter for general adult medical examination without abnormal findings
CPT/HCPCS: 36415; 80048; 80061

== ENCOUNTER → 2023-10-27 00:50 | Outpatient (CLI) | payer BC, SELFPAY ==
--- NOTE | 2023-10-27 15:01 | DI.MAMMO_ITS ---
Exam(s) MAMMO SCREENING EXAM: MAMMO SCREENING CLINICAL HISTORY: screening,z12.39. TECHNIQUE: Bilateral full field digital CC and MLO mammographic images were obtained with 3D tomosyn thesis and utilizing computer aided detection (CAD). COMPARISON: Prior mammograms were reviewed. FINDINGS: There has been no significant change in the appearance and distribution of the fibroglandular tissue. There are no CAD designations. There are no new spiculated masses nor malignant appearing microcalcification groups. There is no significant architectural distortion nor skin thickening-retraction. IMPRESSION: No radiographic evidence of malignancy. BI-RADS Category 1 - Negative Breast Density - Category A - Almost entirely fatty Breast density Category C or D implies that the patient has dense breast tissue. Dense breast tissue can make it harder to find cancer on a mammogram. Dense breast tissue is also associated with an incr eased risk of breast cancer. This information about the result of the mammogram report was provided to the patient to raise their awareness. Use this report when you speak with the patient about their risks for breast cancer, which includes their family history. At that time, you may recommend additional screening tests (Ultrasoun d or MRI) as these tests may add significant information. A negative radiographic report should not delay biopsy if a dominant or clinically suspicious mass is present. Up to ten percent of cancers are not identified on mammography. A negative report may reinforce clinical impression. Adenosis and dense breasts may obscure an underlying neoplasm. False positive reports average 6 to 10%. Patient will receive a letter notifying them of these results.
== END ==
PROVIDERS: PCP Nurse Practitioner Family; Visit Provider Nurse Practitioner Family
DX: Z12.31 Encounter for screening mammogram for malignant neoplasm of breast (principal)
CPT/HCPCS: 77063; 77067

== ENCOUNTER 2024-01-22 01:47 | Outpatient (CLI) | payer BC, SELFPAY ==
[2024-01-22 07:40] LABS: Calculated LDL 67 mg/dL (<100); Cholesterol 148 mg/dL (<200); HDL Cholesterol 51 mg/dL (40-60); Triglyceride 151 mg/dL (<150)
[2024-01-22 10:21] LABS: Lab Add On Test DONE
[2024-01-22 10:32] LABS: Anion Gap 13.9 mmol/L (3-11); BUN 14 mg/dL (7-18); CO2 24.1 mmol/L (21.0-32.0); CREATININE 0.8 mg/dL (0.55-1.02); Calcium 9.4 mg/dL (8.5-10.1); Chloride 101 mmol/L (98-107); Glucose 122 mg/dL (74-106); Potassium 4.4 mmol/L (3.5-5.1); Sodium 139 mmol/L (136-145)
== END 2024-01-22 01:48 | disposition home or self-care (01) ==
LOC: LBO 01:48
PROVIDERS: PCP Nurse Practitioner Family; Visit Provider Nurse Practitioner Family
DX: E78.1 Pure hyperglyceridemia (principal); R60.0 Localized edema; R73.09 Other abnormal glucose
CPT/HCPCS: 36415; 80048; 80061; 83036

== ENCOUNTER 2024-10-21 01:23 | Outpatient (CLI) | payer BC, SELFPAY ==
[2024-10-21 12:14] LABS: HCT 39.7 % (36.0-46.0); HGB 13.3 g/dL (11.2-15.7); MCH 31.5 pg (27.0-33.0); MCHC 33.5 % (32.0-36.0); MCV 94 fL (80-95); MPV 10.1 fL (8.0-11.0); Platelet Count 300 10^3/uL (130-400); RBC 4.22 10^6/uL (3.93-5.22); RDW 12.9 % (11.7-14.6); RDW-SD 44.1 fL; WBC 7.31 10^3/uL (4.4-10.8)
[2024-10-21 12:33] LABS: Hemoglobin A1C 5.5 % (<5.7)
[2024-10-21 12:47] LABS: ALT 16 U/L (14-59); AST 15 U/L (15-37); Albumin 3.5 g/dL (3.4-5.0); Alkaline Phosphatase 80 U/L (46-116); Anion Gap 7.4 mmol/L (3-11); BUN 14 mg/dL (7-18); CO2 27.6 mmol/L (21.0-32.0); CREATININE 0.8 mg/dL (0.55-1.02); Calcium 8.9 mg/dL (8.5-10.1); Calculated LDL 75 mg/dL (<100); Chloride 102 mmol/L (98-107); Cholesterol 174 mg/dL (<200); Glucose 109 mg/dL (74-106); HDL Cholesterol 68 mg/dL (40-60); Potassium 3.9 mmol/L (3.5-5.1); Sodium 137 mmol/L (136-145); Total Protein 7.7 g/dL (6.4-8.2); Triglyceride 156 mg/dL (<150)
== END 2024-10-21 01:24 | disposition home or self-care (01) ==
LOC: LOS 01:23
PROVIDERS: PCP Nurse Practitioner Family; Visit Provider Nurse Practitioner Family
DX: Z00.00 Encounter for general adult medical examination without abnormal findings (principal); E66.01 Morbid (severe) obesity due to excess calories; J45.909 Unspecified asthma, uncomplicated; R60.0 Localized edema
CPT/HCPCS: 36415; 80053; 80061; 85027; 83036

== ENCOUNTER 2024-11-14 01:45 | Outpatient (CLI) | payer BC, SELFPAY ==
--- NOTE | 2024-11-14 07:45 | DI.MAMMO_ITS ---
Exam(s) MAMMO SCREENING EXAM: MAMMO SCREENING CLINICAL HISTORY: screening,z12.39 TECHNIQUE: Bilateral full field digital CC and MLO mammographic images were obtained with 3D tomosyn thesis and utilizing computer aided detection (CAD). COMPARISON: Available for comparison. FINDINGS: Masses/Architectural Distortion: None seen. Microcalcifications: No suspicious pleomorphic-type are seen. Skin Thickening/Nipple Retraction: None. IMPRESSION: 1. No significant interval change with no specific features of malignancy noted. 2. Unless there is more urgent need, screening mammography is recommended, as per [employer] guidelines. BI-RADS Category 1 - Negative Breast Density - Category A - Almost entirely fatty Breast density category C or D implies that the patient has dense breast tissue. Dense breast tissue is very common and is not abnormal but dense breast tissue can make it harder to find cancer on a ma mmogram. Also, dense breast tissue may increase their breast cancer risk. This information about the result of the mammogram report was provided to the patient to raise their awareness. Use this report when you speak with the patient about their risks for breast cancer, which includes their family hist ory. At that time, you may recommend for more screening tests (Ultrasound or MRI) as they might be us eful based on their risk. A negative radiographic report should not delay biopsy if a dominant or clinically suspicious mass is present. Up to ten percent of cancers are not identified on mammography. A negative report may reinforce clinical impression. Adenosis and dense breasts may obscure an underlying neoplasm. False positive reports average 6 to 10%. Patient will receive a letter notifying them of these results.
== END 2024-11-14 02:05 ==
LOC: DI 01:45
PROVIDERS: PCP Nurse Practitioner Family; Visit Provider Nurse Practitioner Family
DX: Z12.31 Encounter for screening mammogram for malignant neoplasm of breast (principal); R92.313 Mammographic fatty tissue density, bilateral breasts
CPT/HCPCS: 77063; 77067

== ENCOUNTER 2025-04-08 14:42 | Outpatient (REF) | payer BC, SELFPAY ==
[2025-04-08 17:38] LABS: Abs Immature Grans 0.01 10^3/uL (0.0-0.06); Absolute Basophil Count 0.04 10^3/uL (0.0-0.2); Absolute Lymphocyte Count 1.86 10^3/uL (1.2-3.4); Absolute Monocyte Count 0.61 10^3/uL (0.1-0.8); Basophils % 0.5 %; Eosinophils % 2.7 %; HCT 39.6 % (36.0-46.0); HGB 13.1 g/dL (11.2-15.7); Immature Grans % 0.1 %; Lymphocytes % 25.1 %; MCH 30.8 pg (27.0-33.0); MCHC 33.1 % (32.0-36.0); MCV 93 fL (80-95); MPV 9.8 fL (8.0-11.0); Monocytes % 8.2 %; Neutrophils % 63.4 %; Platelet Count 286 10^3/uL (130-400); RBC 4.25 10^6/uL (3.93-5.22); RDW 13.1 % (11.7-14.6); RDW-SD 44.7 fL; WBC 7.42 10^3/uL (4.4-10.8)
[2025-04-08 17:49] LABS: ALT 195 U/L (14-59); AST 118 U/L (15-37); Albumin 3.7 g/dL (3.4-5.0); Alkaline Phosphatase 119 U/L (46-116); Anion Gap 10.1 mmol/L (3-11); BUN 7 mg/dL (7-18); Bilirubin, Total 0.5 mg/dL (0.2-1.0); CO2 27.9 mmol/L (21.0-32.0); CREATININE 0.9 mg/dL (0.55-1.02); Calcium 8.3 mg/dL (8.5-10.1); Chloride 101 mmol/L (98-107); Estimated GFR 80.84 (mL/min/1.73m2); Glucose 98 mg/dL (74-106); Potassium 3.9 mmol/L (3.5-5.1); Sodium 139 mmol/L (136-145); Total Protein 7.6 g/dL (6.4-8.2)
== END 2025-04-08 14:43 | disposition home or self-care (01) ==
LOC: LBN 14:42
PROVIDERS: PCP Nurse Practitioner Family; Visit Provider Physician Assistant Medical
DX: R19.7 Diarrhea, unspecified (principal)
CPT/HCPCS: 80053; 85025

== ENCOUNTER 2025-04-09 16:27 | Outpatient (REF) | payer BC, SELFPAY ==
[2025-04-09 17:22] LABS: C Diff PCR Negative (Negative); EPI 027-NAP1-B1 PRESUMPTIVE NEGATIVE
[2025-04-10 20:26] LABS: Campylobacter PCR Negative (Negative); Salmonella PCR Negative (Negative); Shiga Toxin PCR Negative (Negative); Shigella/Enteroinvasive Ecoli Negative (Negative)
== END 2025-04-09 16:28 | disposition home or self-care (01) ==
LOC: LBN 16:27
PROVIDERS: PCP Nurse Practitioner Family; Visit Provider Physician Assistant Medical
DX: R19.7 Diarrhea, unspecified (principal)
CPT/HCPCS: 87015; 87269; 87272; 87505

== ENCOUNTER 2025-04-25 02:57 | Outpatient (CLI) | payer BC, SELFPAY ==
[2025-04-25 15:38] LABS: ALT 26 U/L (14-59); AST 19 U/L (15-37); Albumin 3.7 g/dL (3.4-5.0); Alkaline Phosphatase 83 U/L (46-116); Anion Gap 8.0 mmol/L (3-11); BUN 20 mg/dL (7-18); Bilirubin, Total 0.3 mg/dL (0.2-1.0); CO2 29.0 mmol/L (21.0-32.0); Calcium 9.2 mg/dL (8.5-10.1); Chloride 100 mmol/L (98-107); Estimated GFR 109.30 (mL/min/1.73m2); Glucose 92 mg/dL (74-106); Potassium 3.9 mmol/L (3.5-5.1); Sodium 137 mmol/L (136-145); Total Protein 7.8 g/dL (6.4-8.2)
== END 2025-04-25 02:58 | disposition home or self-care (01) ==
LOC: LBO 02:57
PROVIDERS: PCP Nurse Practitioner Family; Visit Provider Nurse Practitioner Family
DX: R74.8 Abnormal levels of other serum enzymes (principal)
CPT/HCPCS: 36415; 80053